=== PATIENT | male | born 1955 | race Two or more races ===

== ENCOUNTER 2017-04-09 12:03 | Inpatient (IN) | payer BC, MEDICAID ==
[~2017-04-09] VITALS: Ht 170.2 cm; Wt 108.0 kg
[~2017-04-09 12:03] MED LIST: AMLO10TA4 PO; Acetaminophen PO; BENA40TA2 PO; CLON0.1T PO; FOSAMAX; LEVO500T2 PO; METF10002 PO; METO100T7 PO
--- NOTE | 2017-04-09 12:10 | NUR ---
DR CARVALHO AT THE BEDSIDE FOR EVAL AND EXAM.
[2017-04-09 12:48] LABS: BASOPHILS # (AUTO) 0.1 K/uL (0.0-8.0); BASOPHILS % (AUTO) 1.3 % (0.0-2.0); EOSINOPHILS # (AUTO) 0.1 K/uL (0.0-0.7); EOSINOPHILS % (AUTO) 1.6 % (0.0-7.0); HEMATOCRIT 44.1 % (40-50); HEMOGLOBIN 14.1 G/DL (14.0-18.0); LYMPHOCYTES % (AUTO) 12.9 % (20.5-51.5); MEAN CORPUSCULAR HEMOGLOBIN 24.8 UUG (27.0-31.0); MEAN CORPUSCULAR HGB CONC 32 g/dL (32.0-37.0); MEAN CORPUSCULAR VOLUME 77.7 FL (82.0-92.0); MONOCYTES # (AUTO) 0.3 K/UL (0.1-1.30); MONOCYTES % (AUTO) 4.1 % (0.0-11.0); NEUTROPHILS # (AUTO) 5.9 K/UL (1.8-8.9); NEUTROPHILS % (AUTO) 80.1 % (38.5-71.5); PLATELET COUNT (AUTO) 195 K/UL (150-450); RED BLOOD CELL COUNT(AUTO) 5.68 MIL/UL (4.7-6.1); WHITE BLOOD COUNT (AUTO) 7.4 K/UL (4.0-11.2)
[2017-04-09 12:52] LABS: CREATININE 1.6 mg/dL (0.6-1.3); POTASSIUM 4.2 mmol/L (3.5-5.1)
--- NOTE | 2017-04-09 12:52 | NUR ---
PT BP is 186/128, MD aware. Pt is asymptomatic.
[2017-04-09 13:04] LABS: BILIRUBIN,DIRECT 0.1 mg/dL (0.0-0.2); BILIRUBIN,TOTAL 0.3 mg/dL (0.2-1.0); TOTAL PROTEIN, SERUM 6.8 g/dL (6.4-8.2)
[2017-04-09] MEDS ORDERED: LORA10TA7 PO (13:06)
[2017-04-09] MEDS ORDERED: FINA5TAB3 PO (13:06)
[2017-04-09] MEDS ORDERED: CHOL500050 PO (13:06)
[2017-04-09] MEDS ORDERED: ALBU18HF2 IH (13:06)
[2017-04-09] MEDS ORDERED: SITA100T PO (13:06)
[2017-04-09] MEDS ORDERED: DOCU100C36 PO (13:06)
[2017-04-09] MEDS ORDERED: TAMS-3 PO (13:06)
[2017-04-09] MEDS ORDERED: NEXIUM PO (13:06)
[2017-04-09] MEDS ORDERED: ASPI81TA31 PO (13:06)
[2017-04-09] MEDS ORDERED: GLIM2TAB2 PO (13:06)
[2017-04-09] MEDS ORDERED: HYDR-4077 PO (13:06)
[2017-04-09] MEDS ORDERED: FENO145T20 PO (13:06)
[2017-04-09] MEDS ORDERED: LABE100T PO (13:06)
--- NOTE | 2017-04-09 14:33 | NUR ---
Patient is resting comfortably in bed with eyes closed.
--- NOTE | 2017-04-09 15:44 | NUR ---
PT BP REMAINES ELEVATED, DR CARVALHO AWARE, NO ORDERS GIVEN. PT IS ASYMTOMATIC.
--- NOTE | 2017-04-09 16:00 | NUR ---
RECEIVED PATIENT FROM ED 61 YEARS OLD MALE WITH DX OF CHF/ELEVATED TROPONIN.ASSISTED INTO BED FIXED AND MADE COMFORTABLE PATIENT IS ALERT AND ORIENTED BUT UNDERSTANDS [place] BUT WITH SOME DIFFICULTY.ON O2 AT 2L/M BY NASAL CANULA WITH NO SOB AT THIS TIME.HEPLOCK RIGHT AC IS PATENT WITH NO S/S OF INFILTERATION AT THIS TIME.ORIENTED TO THE FACILITY ANS MED/SURG PROTOCOL.WILL OBSERVE.
--- NOTE | 2017-04-09 17:14 | NUR ---
PATIENT SEEN BY DR LOZADA HE IS AWARE OF HIS ELEVATED BLOOD PRESSURE WITH NEW ORDERS AND NOTED.
[2017-04-09] MEDS ORDERED: FUROSEMIDE 40 MG/4 ML VIAL IV SCH (17:15)
[2017-04-09] MEDS ORDERED: hydrALAZINE HCL 20 MG/1 ML VIAL IV PRN (17:15)
[2017-04-09 17:18] VITALS: BP 104/131
[2017-04-09] MEDS: ASPIRIN 81 MG TAB.CHEW PO SCH (17:20)
[2017-04-09] MEDS: hydrALAZINE HCL 50 MG TABLET PO SCH ×2 (17:21→22:14)
[2017-04-09] MEDS: LABETALOL HCL 100 MG TABLET PO SCH (17:22)
[2017-04-09] MEDS: AMLODIPINE 10 MG TABLET PO SCH (17:22)
--- NOTE | 2017-04-09 18:21 | NUR ---
SPOKE WITH DR VIVAS RE DIET AND HE IS AWARE OF PATIENTS ELEVATED BLOOD PRESSURE AND ORDERS FROM THE AQUARIUM SPECIALIST DR PERLA STATED OKAY WILL SEE PATIENT.
[2017-04-09] MEDS ORDERED: ACETAMINOPHEN 325 MG TABLET PO PRN (18:45)
[2017-04-09] MEDS ORDERED: ALBUTEROL SULFATE 1.25 MG/3 ML NEBU NEB PRN (18:45)
[2017-04-09] MEDS ORDERED: INSULIN REGULAR, HUMAN 300 UNIT/3 ML VIAL SQ PRN (18:45)
[2017-04-09] MEDS ORDERED: HYDROCODONE/APAP 5-325MG TABLET PO PRN (18:45)
[2017-04-09] MEDS ORDERED: DEXTROSE 50% 50 ML DISP.SYRIN IV PRN (18:45)
[2017-04-09] MEDS ORDERED: TEMAZEPAM 15 MG CAPSULE PO PRN (18:45)
[2017-04-09] MEDS ORDERED: TEMAZEPAM 7.5 MG CAPSULE PO PRN (19:00)
[2017-04-09 20:43] VITALS: BP 165/116
[2017-04-09] MEDS: DOCUSATE SODIUM 100 MG CAPSULE PO SCH (20:52)
[2017-04-09] MEDS: IBUPROFEN 400 MG TABLET PO PRN (20:52)
[2017-04-09] MEDS: ATORVASTATIN 40 MG TABLET PO SCH (20:52)
[2017-04-09] MEDS: TAMSULOSIN HCL 0.4 MG CAP.SR.24H PO SCH (20:52)
[2017-04-09] MEDS: BLOOD SUGAR DIAGNOSTIC 1 EACH STRIP VI SCH (20:53)
[2017-04-09] MEDS ORDERED: IBUPROFEN 400 MG TABLET ONE (20:59)
--- NOTE | 2017-04-09 21:00 | NUR ---
PT WITH C/O PAIN OF LEFT LEG 07/11. OFFERED PT PAIN MEDICATION NORCO PER ORDER, PT REFUSED STATING "I DONT WANT THAT". ALSO OFFERED TYLENOL AND PT REFUSED IT WELL. PER PT "I WANT MOTRIN". CALLED AND INFORMED DR VIVAS AND RECEIVED NEW ORDER FOR MOTRIN PRN. ADMINISTERED MOTRIN PER ORDER AND TOLERATED WELL. CALL LIGHT WITH IN REACH, WILL CONT TO MONITOR.
[2017-04-10 00:13] VITALS: BP 179/130
[2017-04-10 00:20] VITALS: BP 150/114
--- NOTE | 2017-04-10 00:20 | NUR ---
STILL NOTED PT WITH ELEVATED BP OF 179/130 AND PULSE OF 109. GIVEN HYDRALAZINE PRESCRIBED. RECHECKED B/P 150/114 AND PULSE 98.
[2017-04-10] MEDS ORDERED: NIFEdipine XL 60 MG TABSR PO ONE ×2 (01:30→01:44)
[2017-04-10 04:17] VITALS: BP 169/117
[2017-04-10] MEDS: hydrALAZINE HCL 50 MG TABLET PO SCH ×3 (05:29→20:54)
--- NOTE | 2017-04-10 05:58 | NUR ---
RES IN BED, RESTING. RESP IS EVEN AND UNLABORED. NO SOB. NO ACUTE DISTRESS. B/P WAS ELEVATED THROUGHOUT THE SHIFT. TRINH WELLS MADE AWARE. WITH NEW ORDERS NOTED AND CARRIED OUT. PT ON TELE SR 98 AT THIS TIME.
[2017-04-10] MEDS: PANTOPRAZOLE SODIUM 40 MG TABLET.DR PO SCH (06:05)
[2017-04-10] MEDS: IBUPROFEN 400 MG TABLET PO PRN ×2 (06:30→14:05)
[2017-04-10] MEDS: BLOOD SUGAR DIAGNOSTIC 1 EACH STRIP VI SCH ×4 (06:30→20:54)
[2017-04-10] MEDS ORDERED: IBUPROFEN 400 MG TABLET ONE (06:40)
[2017-04-10 06:54] LABS: BASOPHILS % (AUTO) 0.4 % (0.0-2.0); EOSINOPHILS # (AUTO) 0.1 K/uL (0.0-0.7); EOSINOPHILS % (AUTO) 1.1 % (0.0-7.0); HEMATOCRIT 46.3 % (40-50); HEMOGLOBIN 14.8 G/DL (14.0-18.0); LYMPHOCYTES # (AUTO) 1.2 K/UL (0.8-4.8); MEAN CORPUSCULAR HGB CONC 32 g/dL (32.0-37.0); MEAN CORPUSCULAR VOLUME 78.2 FL (82.0-92.0); MONOCYTES # (AUTO) 0.4 K/UL (0.1-1.30); MONOCYTES % (AUTO) 4.2 % (0.0-11.0); NEUTROPHILS # (AUTO) 7.8 K/UL (1.8-8.9); NEUTROPHILS % (AUTO) 81.3 % (38.5-71.5); PLATELET COUNT (AUTO) 187 K/UL (150-450); RED BLOOD CELL COUNT(AUTO) 5.92 MIL/UL (4.7-6.1); WHITE BLOOD COUNT (AUTO) 9.5 K/UL (4.0-11.2)
[2017-04-10 07:16] LABS: BILIRUBIN,TOTAL 0.4 mg/dL (0.2-1.0); CREATININE 1.6 mg/dL (0.6-1.3); MAGNESIUM 2.1 mg/dL (1.8-2.4); PHOSPHOROUS 3.1 mg/dL (2.5-4.9); POTASSIUM 3.6 mmol/L (3.5-5.1); TOTAL PROTEIN, SERUM 7.2 g/dL (6.4-8.2)
[2017-04-10 07:40] LABS: THYROID STIMULATING HORMONE 0.303 mIU/mL (0.358-3.740)
--- NOTE | 2017-04-10 08:15 | NUR ---
RECEIVED IN BED IN DEEP SLEEP AWAKENED HIM UP FOR BREAKFAST DRANK HIS JUICE ONLY STATED NOT HUNGRY DUE MEDICATIONS GIVEN NO S/S OF HYPO/HYPERGLYCEMIC REACTIONS AT THIS TIME.NO SHORTNESS OF BREATH WITH O2 ORDERED NOT IN DISTRESS AT THIS TIME AND WILL CONTINUE TO OBSERVE.
[2017-04-10] MEDS: FINASTERIDE 5 MG TABLET PO SCH (08:46)
[2017-04-10] MEDS: GLIMEPIRIDE 2 MG TABLET PO SCH ×2 (08:46→17:03)
[2017-04-10] MEDS: ASPIRIN 81 MG TAB.CHEW PO SCH (08:46)
[2017-04-10] MEDS: LINAGLIPTIN 5 MG TABLET PO SCH (08:46)
[2017-04-10] MEDS: FENOFIBRATE NANOCRYSTALLIZED 145 MG TABLET PO SCH (08:46)
[2017-04-10] MEDS: LABETALOL HCL 100 MG TABLET PO SCH ×2 (08:47→16:18)
[2017-04-10] MEDS: AMLODIPINE 10 MG TABLET PO SCH (08:48)
[2017-04-10] MEDS ORDERED: Medication Not On Formulary EA (Sitagliptin Phosphate (Januvia) 100 MG) PO SCH (09:00)
[2017-04-10] MEDS ORDERED: FUROSEMIDE 40 MG/4 ML VIAL IV SCH (09:00)
[2017-04-10 11:12] VITALS: BP 124/88
--- NOTE | 2017-04-10 13:43 | NUR ---
2 D ECHO COMPLETED ORDERED AND EF IS 60-65% AT THIS TIME.
--- NOTE | 2017-04-10 14:55 | NUR ---
PATIENT SEEN AND EXAMINED BY DR LOZADA LEAF TIER WITH NEW ORDER TO TAPER LASIX EFFECTIVE TOMORROW AND NOTED.
[2017-04-10 16:34] VITALS: BP 150/101
--- NOTE | 2017-04-10 18:00 | NUR ---
SLEEPING AT LONG INTERVALS BUT AROUSES EASILY ENCOURAGED TO ELEVATE HIS LEFT LEG MUCH ABLE AND HE EXPRESSED UNDERSTANDING.
--- NOTE | 2017-04-10 19:20 | NUR ---
PATIENT AWAKE VERBALLY RESPONSIVE, NO SOB NO CHEST PAIN, CONT ON OXYGEN 2L NC, ON PAIN MANAGEMENT, NO DISTRESS.
[2017-04-10 20:00] VITALS: BP 142/91
[2017-04-10] MEDS: DOCUSATE SODIUM 100 MG CAPSULE PO SCH (20:52)
[2017-04-10] MEDS: ATORVASTATIN 40 MG TABLET PO SCH (20:53)
[2017-04-10] MEDS: TAMSULOSIN HCL 0.4 MG CAP.SR.24H PO SCH (20:53)
[2017-04-10] MEDS ORDERED: CARISOPRODOL 350 MG TABLET PO ONE (23:18)
[2017-04-11] VITALS: BP 137/89
[2017-04-11] MEDS ORDERED: CARISOPRODOL 350 MG TABLET ONE (01:01)
[2017-04-11 04:00] VITALS: BP 157/108
[2017-04-11] MEDS: BLOOD SUGAR DIAGNOSTIC 1 EACH STRIP VI SCH ×3 (05:53→16:15)
[2017-04-11] MEDS: PANTOPRAZOLE SODIUM 40 MG TABLET.DR PO SCH (06:14)
[2017-04-11] MEDS: hydrALAZINE HCL 50 MG TABLET PO SCH ×2 (06:14→13:28)
--- NOTE | 2017-04-11 07:31 | NUR ---
PATIENT SLEPT MOST OF THE NIGHT, NO SOB NO CHEST PAIN,OXYGEN SAT WNL, BP SLIGHTLY ELEVATED, MEDICATED, ENDORSED TO NEXT SHIFT.
--- NOTE | 2017-04-11 08:30 | NUR ---
SLEEPING A LOT STATED THAT HE IS VERY TIRED AND NEEDED TO SLEEP.NO S/S OF HYPO/HYPERGLYCEMIC REACTIONS AT THIS TIME.REMAIN ON O2 WITH NO SHORTNESS OF BREATH TELE MONITORING REMAINS IN PROGRESS ORDERED MADE COMFORTABLE.
[2017-04-11] MEDS ORDERED: FUROSEMIDE 20 MG TABLET PO SCH (09:00)
[2017-04-11] MEDS ORDERED: NIFEdipine XL 60 MG TABSR PO SCH (09:00)
[2017-04-11] MEDS: FENOFIBRATE NANOCRYSTALLIZED 145 MG TABLET PO SCH (09:30)
[2017-04-11] MEDS: ASPIRIN 81 MG TAB.CHEW PO SCH (09:30)
[2017-04-11] MEDS: GLIMEPIRIDE 2 MG TABLET PO SCH ×2 (09:30→17:18)
[2017-04-11] MEDS: LABETALOL HCL 100 MG TABLET PO SCH ×2 (09:31→16:16)
[2017-04-11] MEDS: LINAGLIPTIN 5 MG TABLET PO SCH (09:31)
[2017-04-11] MEDS: FINASTERIDE 5 MG TABLET PO SCH (10:35)
[2017-04-11] MEDS: IBUPROFEN 400 MG TABLET PO PRN (10:44)
[2017-04-11] MEDS ORDERED: VANCOMYCIN IV 1,500 MG in IV DEXTROSE 5% 500 ML IV SCH (11:00)
[2017-04-11] MEDS ORDERED: CARISOPRODOL 350 MG TABLET PO PRN (11:00)
[2017-04-11 11:25] VITALS: BP 129/90
--- NOTE | 2017-04-11 11:45 | NUR ---
REMAIN ON IV ANTIBIOTICS ORDERED WITH NO ADVERSE OR ALLERGIC REACTIONS AT THIS TIME.LEFT LEG IS STILL AND SOMEWHAT REDENED ELEVATED ON THE PILLOW AND ENCOURAGED TO KEEP ELEVATED AND HE EXPRESSED UNDERSTANDING
[2017-04-11 15:11] VITALS: BP 123/92
--- NOTE | 2017-04-11 15:48 | NUR ---
Clinical pharmacy note-Vancomycin per pharmacy Subjective: To start Vancomycin dosing on this 61 year old patient for cellulitis Objective: BUN 19(04/10) Scr 1.6(7 WBC 9.5(04/10) Temp 98.6 Ht 5'7" Wt 238 lbs Assessment/Plan: Will start with Vancomycin 1500mg IV every 20 hrs(first dose given today at 1100) and draw trough by 4th dose(not ordered yet) for expected trough around 15.68. Since renal function is not stable, will check and adjust the dose if needed in am. Will follow daily.
[2017-04-11 16:16] VITALS: BP 131/90
--- NOTE | 2017-04-11 16:28 | NUR ---
BLOOD SUGAR IS 79 WITHIN NORMAL RANGE AND PATIENT IS ALERT AND ORIENTED AND NO S/S OF HYPOGLYCEMIC REACTIONS AT THIS TIME.ORANGE JUICE OFFERED AND HE DRANK AND TOLERATED IT WELL.WILL CONTINUE TO OBSERVE.
--- NOTE | 2017-04-11 18:15 | NUR ---
PATIENT SEEN BY DR VIVAS WITH ORDER TO DISCHARGE PATIENT HOME TODAY.PATIENT IS AWARE AWAITING FOR DR VIVAS TO FINALISE HIS PAPAER WORK.
[2017-04-11] MEDS ORDERED: TAMS-3 PO (18:26)
[2017-04-11] MEDS ORDERED: BENA20TA2 PO (18:26)
[2017-04-11] MEDS ORDERED: GLIM2TAB PO (18:26)
[2017-04-11] MEDS ORDERED: FURO20TA4 PO (18:26)
[2017-04-11] MEDS ORDERED: SULF1TAB48 PO (18:26)
[2017-04-11] MEDS ORDERED: CARI350T27 PO (18:26)
--- NOTE | 2017-04-11 18:42 | NUR ---
DISCHARGE INSTRUCTIONS AND PRESCRIPTIONS GIVEN TO THE PATIENT HEPLOCK REMOVED PATIENT INSTRUCTED TO CALL HIS MEDIA SUPERVISOR DR CUTLER FOR A FOLLOW UP APPOINTMENT WITH HIS CHF DIAGNOSIS AND HE EXPRESSED UNDERSTANDING.AWAITING FOR HIS SPOUSE TO PICK HIM UP.
--- NOTE | 2017-04-11 18:57 | NUR ---
PATIENTS HERE AND PATIENT DISCHARGED WITH ALL HIS PERSONAL BELONGINGS AND HE IS INSTRUCTED TO CALL HIS PITCH FILLER DR CUTLER FOR A FOLLOW UP APPOINTMENT ON HIS CHF AND HE EXPRESSED UNDERSTANDING.
== END 2017-04-11 19:00 | disposition home or self-care (01) | DRG 194 ==
LOC: ER 12:03 → TELE 15:47 → MED 04-11 12:09
PROVIDERS: ADMIT Internal Medicine; ATTEND Internal Medicine
DX: I13.0 Hypertensive heart and chronic kidney disease with heart failure and stage 1 through stage 4 chronic kidney disease, or unspecified chronic kidney disease (principal); I21.4 Non-ST elevation (NSTEMI) myocardial infarction; N17.0 Acute kidney failure with tubular necrosis; E43 Unspecified severe protein-calorie malnutrition; E83.52 Hypercalcemia; L03.116 Cellulitis of left lower limb; E11.22 Type 2 diabetes mellitus with diabetic chronic kidney disease; I50.33 Acute on chronic diastolic (congestive) heart failure; E11.65 Type 2 diabetes mellitus with hyperglycemia; Z68.37 Body mass index [BMI] 37.0-37.9, adult; E66.01 Morbid (severe) obesity due to excess calories; E78.5 Hyperlipidemia, unspecified; G89.29 Other chronic pain; Z91.14 Patient's other noncompliance with medication regimen; Z87.442 Personal history of urinary calculi; Z79.899 Other long term (current) drug therapy; Z98.890 Other specified postprocedural states; M54.30 Sciatica, unspecified side; F17.210 Nicotine dependence, cigarettes, uncomplicated; I16.0 Hypertensive urgency; N18.9 Chronic kidney disease, unspecified
CPT/HCPCS: 36415; 70030-TC; 71010; 83735; 84100; 84443; 85025; 85730; 93005; 93307; A4663; J0360; J1815; J1940; J3370; J7050; J7060

== ENCOUNTER 2017-05-22 09:50 | Inpatient (IN) | payer BC ==
[2017-05-22] VITALS (31 sets, daily range): BP systolic 118–186; BP diastolic 67–134
[~2017-05-22] VITALS: Ht 162.6 cm; Wt 110.7 kg
[~2017-05-22 09:50] MED LIST changes: +ALBU18HF2 IH; +ASPI81TA31 PO; -Acetaminophen PO; +BENA20TA2 PO; -BENA40TA2 PO; +CARI350T27 PO; +CHOL500050 PO; -CLON0.1T PO; +DOCU100C36 PO; +FINA5TAB3 PO; -FOSAMAX; +FURO20TA4 PO; +GLIM2TAB PO; +HYDR-4077 PO; +LABE100T PO; -LEVO500T2 PO; +LORA10TA7 PO; -METF10002 PO; -METO100T7 PO; +NEXIUM PO; +SITA100T PO; +SULF1TAB48 PO; +TAMS-3 PO
[2017-05-22] MEDS ORDERED: ALBUTEROL SULFATE 2.5 MG/3 ML NEBU NEB ONE ×3 (10:00→13:00)
[2017-05-22] MEDS ORDERED: IPRATROPIUM BROMIDE 0.5 MG/2.5 ML NEBU NEB ONE ×2 (10:00→13:30)
--- NOTE | 2017-05-22 10:00 | NUR ---
Dr Hendricks at the bedside for eval and exam.
[2017-05-22] MEDS ORDERED: IPRATROPIUM BROMIDE 0.5 MG/2.5 ML NEBU ONE ×2 (10:14→13:25)
[2017-05-22] MEDS ORDERED: ALBUTEROL SULFATE 2.5 MG/3 ML NEBU ONE ×3 (10:14→13:07)
--- NOTE | 2017-05-22 10:29 | NUR ---
Pt states feeling better, RR and 02 sat improved.
[2017-05-22 10:37] LABS: CREATININE 1.7 mg/dL (0.6-1.3); POTASSIUM 4.4 mmol/L (3.5-5.1)
[2017-05-22 10:40] LABS: BASOPHILS % (AUTO) 0.4 % (0.0-2.0); EOSINOPHILS # (AUTO) 0.2 K/uL (0.0-0.7); EOSINOPHILS % (AUTO) 1.8 % (0.0-7.0); HEMOGLOBIN 14.1 G/DL (14.0-18.0); LYMPHOCYTES # (AUTO) 1.3 K/UL (0.8-4.8); LYMPHOCYTES % (AUTO) 13.9 % (20.5-51.5); MEAN CORPUSCULAR HEMOGLOBIN 24.8 UUG (27.0-31.0); MEAN CORPUSCULAR HGB CONC 31 g/dL (32.0-37.0); MEAN CORPUSCULAR VOLUME 79.1 FL (82.0-92.0); MONOCYTES # (AUTO) 0.4 K/UL (0.1-1.30); MONOCYTES % (AUTO) 4.3 % (0.0-11.0); NEUTROPHILS # (AUTO) 7.4 K/UL (1.8-8.9); NEUTROPHILS % (AUTO) 79.6 % (38.5-71.5); PLATELET COUNT (AUTO) 199 K/UL (150-450); RED BLOOD CELL COUNT(AUTO) 5.69 MIL/UL (4.7-6.1); WHITE BLOOD COUNT (AUTO) 9.3 K/UL (4.0-11.2)
[2017-05-22] MEDS ORDERED: PANTOPRAZOLE SODIUM 40 MG VIAL IV ONE (10:45)
[2017-05-22] MEDS ORDERED: methylPREDNISolone SOD SUCC 125 MG/2 ML VIAL IV ONE (10:45)
[2017-05-22 10:49] LABS: BILIRUBIN,DIRECT 0.1 mg/dL (0.0-0.2); BILIRUBIN,TOTAL 0.4 mg/dL (0.2-1.0); TOTAL PROTEIN, SERUM 6.6 g/dL (6.4-8.2)
[2017-05-22] MEDS ORDERED: GABA-532 PO (10:52)
[2017-05-22] MEDS ORDERED: MELO-107 PO (10:52)
[2017-05-22] MEDS ORDERED: HYDR-4077 PO (10:52)
[2017-05-22] MEDS ORDERED: FURO-151 PO (10:52)
[2017-05-22] MEDS ORDERED: BENA20TA2 PO (10:52)
[2017-05-22] MEDS ORDERED: methylPREDNISolone SOD SUCC 125 MG/2 ML VIAL ONE (10:56)
[2017-05-22] MEDS ORDERED: PANTOPRAZOLE SODIUM 40 MG VIAL ONE (10:56)
[2017-05-22] MEDS ORDERED: CHOL10002 PO (11:05)
--- NOTE | 2017-05-22 11:05 | NUR ---
EDICATIONS REVIEWED WITH PATIENT'S DAUGHTER.
[2017-05-22] MEDS ORDERED: AZITHROMYCIN IV 500 MG in IV DEXTROSE 5% 250 ML IV ONE (11:30)
[2017-05-22] MEDS ORDERED: CEFTRIAXONE 1 G in IV DEXTROSE 5% 50 ML IV ONE (11:30)
[2017-05-22] MEDS ORDERED: ASPIRIN 325 MG TABLET PO ONE (11:30)
[2017-05-22] MEDS ORDERED: ASPIRIN 325 MG TABLET ONE (11:58)
[2017-05-22] MEDS ORDERED: AZITHROMYCIN 500 MG VIAL IV ONE (11:58)
[2017-05-22] MEDS ORDERED: CEFTRIAXONE 1 G VIAL ONE (11:58)
--- NOTE | 2017-05-22 12:40 | NUR ---
PT BECAME RESTLESS AND DIAPHARATIC, 02 SAT DROPS TO 92%. NOTIFIED MD, AND CHANGED PT TO MASK AT 10L/MIN. PT REMAINES TO BE HAVING RR35 AND T[place]IA.
[2017-05-22] MEDS ORDERED: ACETAMINOPHEN ES 500 MG TABLET ONE (12:48)
[2017-05-22] MEDS ORDERED: ACETAMINOPHEN ES 500 MG TABLET PO ONE (13:00)
[2017-05-22] MEDS ORDERED: FUROSEMIDE 40 MG/4 ML VIAL ONE (13:12)
[2017-05-22] MEDS ORDERED: NITROGLYCERIN 0.4 MG/TAB BOTTLE SL ONE ×2 (13:14→13:45)
[2017-05-22] MEDS ORDERED: NITROGLYCERIN IV 250 ML ONE (13:18)
--- NOTE | 2017-05-22 13:20 | NUR ---
RT started pt on bipap per md order, 09/05, rr 16, FIO2 40%.
[2017-05-22] MEDS ORDERED: MAGNESIUM SULFATE/D5W 100 ML IV SCH (13:30)
[2017-05-22] MEDS ORDERED: MAGNESIUM SULFATE/D5W 100 ML ONE (13:35)
[2017-05-22] MEDS ORDERED: NITROGLYCERIN/D5W 50 MG/250 ML BOTTLE IV ONE (13:45)
[2017-05-22] MEDS ORDERED: FUROSEMIDE 20 MG/2 ML VIAL IV ONE (13:45)
--- NOTE | 2017-05-22 13:55 | NUR ---
sbar report received from Lucie HOWE
[2017-05-22 14:02] LABS: ABG BASE EXCESS -3.8 mmol/L; ABG PCO2 48.5 mmHg (35.0-45.0); ABG PH 7.294 (7.350-7.450); ABG PO2 73.9 mmHg (75.0-100.0); ABG SITE RIGHT RADIAL; ABG TOTAL HEMOGLOBIN 14.4 G/dL (13.5-18.0); COHb 2.1 % (0.5-1.5); MetHb 0.3 % (0.0-1.5); O2Hb 91.9 % (94.0-97.0)
--- NOTE | 2017-05-22 14:15 | NUR ---
DECREASE NITRO DRIP TO 5 MCG/MIN PER MD ORDER.
--- NOTE | 2017-05-22 15:00 | NUR ---
admitted 61 yr old male to ccu3, awake alert and on BIPAP 12/5 rate 16 Fio2 40%. lungs rhonci bilaterally. ekg sinus tachycardia 110/min. on ntg drip @ 5mcg/min. IV sites times 2 Right wrist #20 and left AC #20. Addendum: 05/22/17 at 1934 by ANNA ROA RN Amended: Links added.
[2017-05-22] MEDS ORDERED: NITROGLYCERIN IV 250 ML IV SCH (15:30)
--- NOTE | 2017-05-22 15:30 | NUR ---
voiding with no problem Addendum: 05/22/17 at 1939 by ANNA ROA RN Amended: Links added.
--- NOTE | 2017-05-22 16:00 | NUR ---
temp better. warmed up with blankets Addendum: 05/22/17 at 1938 by ANNA ROA RN Amended: Mary added. Addendum: 05/22/17 at 1939 by ANNA ROA RN Amended: Mary added.
[2017-05-22 16:13] LABS: *BILIRUBIN,URIN NEGATIVE (NEGATIVE); *BLOOD, URINE NEGATIVE (NEGATIVE); *CLARITY,URINE CLEAR (CLEAR); *COLOR,URINE YELLOW (YELLOW); *KETONES,URINE NEGATIVE (NEGATIVE); *UROBILINOGEN,URINE 0.2 E.U./dl (NORMAL); LEUKOCYTE ESTERASE ,URINE 1+ (NEGATIVE); NITRITE, URINE NEGATIVE (NEGATIVE); PH,URINE 5.5 (5.0-8.0); UGLUCOSE NEGATIVE (NEGATIVE)
[2017-05-22 16:14] LABS: *PROTEIN,URINE 3+ (NEGATIVE)
[2017-05-22 16:29] LABS: BACTERIA,URINE MA /HPF (NONE SEEN); RBC,URINE 0-3 /HPF (0-3); SQUAMOUS EPITHELIAL CELL,UR FEW /HPF (NONE SEEN)
[2017-05-22] MEDS ORDERED: NITROGLYCERIN IV 250 ML IV PRN (16:30)
[2017-05-22] MEDS ORDERED: Z GUARD REMEDY PASTE 57 GM TUBE TOP PRN (18:00)
[2017-05-22] MEDS ORDERED: ONDANSETRON 4 MG/2 ML VIAL IV PRN (18:00)
[2017-05-22] MEDS ORDERED: ACETAMINOPHEN 325 MG TABLET PO PRN (18:00)
[2017-05-22] MEDS ORDERED: BUMETANIDE INJ 4 MG in IV DEXTROSE 5% 24 ML IV ONE (18:00)
[2017-05-22] MEDS ORDERED: IV NORMAL SALINE 250 ML IV PRN (18:30)
--- NOTE | 2017-05-22 18:35 | NUR ---
anetax drip started at 1mg/hr times 4 hrs via right wrist Addendum: 05/22/17 at 1935 by ANNA ROA RN Amended: Links added. Addendum: 05/22/17 at 1936 by ANNA ROA RN Amended: Links added. Addendum: 05/22/17 at 1937 by ANNA ROA RN Amended: Links added. Addendum: 05/22/17 at 1939 by ANNA ROA RN Amended: Links added.
[2017-05-22] MEDS: GLIMEPIRIDE 2 MG TABLET PO SCH (18:37)
--- NOTE | 2017-05-22 19:00 | NUR ---
ntg drip increased to 20mcg/min for persistent hypertension Addendum: 05/22/17 at 1936 by ANNA ROA RN Amended: Links added. Addendum: 05/22/17 at 1937 by ANNA ROA RN Amended: Links added. Addendum: 05/22/17 at 1938 by ANNA ROA RN Amended: Links added.
--- NOTE | 2017-05-22 19:30 | NUR ---
Resting in bed, sleeping intermittently but easily awakens. Resp easy and regular on NC 4L/min. States has Hx sleep apnea and wears CPAP PRN at home. Remains hypertensive; Nitroglycerin drip titrating as per parameter. Bumex drip also infusing at 1mg/hr until completed. Plans of care explained and noted pt to have poor concentration. Nursing comfort measures observed.
[2017-05-22] MEDS: MORPHINE SULFATE 2 MG/1 ML DISP.SYRIN IV PRN (19:55)
[2017-05-22] MEDS ORDERED: hydrALAZINE HCL 20 MG/1 ML VIAL IV PRN (20:15)
--- NOTE | 2017-05-22 20:15 | NUR ---
Dr. Frank called in, made aware of persistent HTN. Received order for PRN IV Hydralazine, carried out.
[2017-05-22] MEDS: TAMSULOSIN HCL 0.4 MG CAP.SR.24H PO SCH (20:40)
[2017-05-22] MEDS: GABAPENTIN 100 MG CAPSULE PO SCH (20:41)
--- NOTE | 2017-05-22 22:00 | NUR ---
Bumex infusion completed. Pt continues to diurese large amounts of urine. O2 sats continue to improve and thus O2 titrated down to 2L/min. Will continue to monitor.
[2017-05-23] VITALS (64 sets, daily range): BP systolic 100–182; BP diastolic 40–130
--- NOTE | 2017-05-23 00:01 | NUR ---
Ambien for sleep given per request. Also attempted to put on BiPap for the night however pt expressed discomfort from BiPap mask. Nasal cannula 2L/min resumed.
[2017-05-23] MEDS: ZOLPIDEM 5 MG TABLET PO PRN (00:09)
--- NOTE | 2017-05-23 04:00 | NUR ---
Noted O2 sats range from 84-97% on O2 3L/min. Has been sleeping soundly. In no apparent acute distress.
[2017-05-23] MEDS ORDERED: ENOXAPARIN SODIUM 30 MG/0.3 ML DISP.SYRIN SUBCUT SCH (04:45)
[2017-05-23] MEDS ORDERED: ENOXAPARIN SODIUM 30 MG/0.3 ML DISP.SYRIN ONE (05:06)
[2017-05-23 05:11] LABS: BASOPHILS % (AUTO) 0.1 % (0.0-2.0); EOSINOPHILS % (AUTO) 0.2 % (0.0-7.0); HEMATOCRIT 41.2 % (40-50); HEMOGLOBIN 13.3 G/DL (14.0-18.0); LYMPHOCYTES # (AUTO) 0.9 K/UL (0.8-4.8); LYMPHOCYTES % (AUTO) 9.2 % (20.5-51.5); MEAN CORPUSCULAR HEMOGLOBIN 25.4 UUG (27.0-31.0); MEAN CORPUSCULAR HGB CONC 32 g/dL (32.0-37.0); MONOCYTES # (AUTO) 0.4 K/UL (0.1-1.30); MONOCYTES % (AUTO) 3.6 % (0.0-11.0); NEUTROPHILS # (AUTO) 8.5 K/UL (1.8-8.9); NEUTROPHILS % (AUTO) 86.9 % (38.5-71.5); PLATELET COUNT (AUTO) 215 K/UL (150-450); RED BLOOD CELL COUNT(AUTO) 5.22 MIL/UL (4.7-6.1); WHITE BLOOD COUNT (AUTO) 9.8 K/UL (4.0-11.2)
[2017-05-23 05:20] LABS: BILIRUBIN,TOTAL 0.3 mg/dL (0.2-1.0); CREATININE 1.7 mg/dL (0.6-1.3); MAGNESIUM 1.8 mg/dL (1.8-2.4); PHOSPHOROUS 3.7 mg/dL (2.5-4.9); TOTAL PROTEIN, SERUM 6.4 g/dL (6.4-8.2)
[2017-05-23 05:26] LABS: THYROID STIMULATING HORMONE 0.227 mIU/mL (0.358-3.740)
--- NOTE | 2017-05-23 06:30 | NUR ---
Refusing AM care at this time; prefers to sleep. Nitroglycerin continues to infuse at 20 mcg/min to keep SBP below 150. No critical lab values this AM. Please see CCU flowsheet for trends and clinical data.
--- NOTE | 2017-05-23 07:15 | NUR ---
report received from Maggie HOWE. 6 yr old male admitted for chf/sob. now on 3 l nc. still on ntg drip to keep sbp<150 via left upper arm #22. ekg sinus tach hr 110/min bp160/120 Addendum: 05/23/17 at 1045 by ANNA ROA RN Amended: Links added.
--- NOTE | 2017-05-23 08:00 | NUR ---
ntg drip titrated up to 25mcg/min. for persistent hypertension Addendum: 05/23/17 at 1046 by ANNA ROA RN Amended: Links added.
[2017-05-23] MEDS: ASPIRIN 81 MG TAB.CHEW PO SCH (08:45)
[2017-05-23] MEDS: FINASTERIDE 5 MG TABLET PO SCH (08:45)
[2017-05-23] MEDS: AMLODIPINE 10 MG TABLET PO SCH (08:46)
[2017-05-23] MEDS: CHOLECALCIFEROL 1,000 UNIT TABLET PO SCH (08:47)
[2017-05-23] MEDS: LINAGLIPTIN 5 MG TABLET PO SCH (08:49)
[2017-05-23] MEDS: GLIMEPIRIDE 2 MG TABLET PO SCH ×2 (08:50→17:09)
[2017-05-23] MEDS: PANTOPRAZOLE SODIUM 40 MG TABLET.DR PO SCH (08:51)
[2017-05-23] MEDS ORDERED: LABETALOL HCL 100 MG TABLET PO SCH (09:00)
[2017-05-23] MEDS ORDERED: hydrALAZINE HCL 50 MG TABLET PO SCH (09:00)
[2017-05-23] MEDS ORDERED: SITAGLIPTIN PHOSPHATE 50 MG TABLET PO SCH (09:00)
[2017-05-23] MEDS ORDERED: BENAZEPRIL HCL 20 MG TABLET PO SCH (09:00)
[2017-05-23] MEDS: LEVALBUTEROL HCL NEB 0.63 MG/3 ML NEBU NEB PRN ×2 (10:24→21:25)
--- NOTE | 2017-05-23 10:39 | NUR ---
episodes of coughing spells, cough nonproductive. lungs tight wth some wheezes. talked to dr cline for breathing treatment. xopenex treatment given per Chester RT Addendum: 05/23/17 at 1039 by ANNA ROA RN Amended: Links added. Addendum: 05/23/17 at 1046 by ANNA ROA RN Amended: Links added.
[2017-05-23] MEDS ORDERED: NITROGLYCERIN OINT 1 GM PACKET TP PRN (11:00)
--- NOTE | 2017-05-23 11:31 | NUR ---
Report given to Jhonny HOWE Nursing Cable Reeler Addendum: 05/23/17 at 1258 by ANNA ROA RN Amended: Links added.
--- NOTE | 2017-05-23 12:03 | NUR ---
Report received from Jhonny HOWE Nursing Debridging Machine Operator Addendum: 05/23/17 at 1259 by ANNA ROA RN Amended: Links added.
[2017-05-23] MEDS ORDERED: NORMAL SALINE FLUSH 10 ML DISP.SYRIN IV PRN (12:45)
[2017-05-23] MEDS: hydrALAZINE HCL 50 MG TABLET PO SCH ×2 (14:38→22:04)
[2017-05-23] MEDS: NORMAL SALINE FLUSH 10 ML DISP.SYRIN IV SCH ×2 (14:38→22:03)
--- NOTE | 2017-05-23 14:45 | NUR ---
education materials re smoking cessation, ntg drip and heart failure given to patient Addendum: 05/23/17 at 1617 by ANNA ROA RN Amended: Links added. Addendum: 05/23/17 at 1619 by ANNA ROA RN Amended: Links added.
--- NOTE | 2017-05-23 16:15 | NUR ---
ntg drip off at 1600. bp stable. Addendum: 05/23/17 at 1615 by ANNA ROA RN Amended: Links added. Addendum: 05/23/17 at 1615 by ANNA ROA RN Amended: Links added. Addendum: 05/23/17 at 1617 by ANNA ROA RN Amended: Mary added. Addendum: 05/23/17 at 1619 by ANNA ROA RN Amended: Links added.
--- NOTE | 2017-05-23 16:19 | NUR ---
voiding less frequently today. Addendum: 05/23/17 at 1619 by ANNA ROA RN Amended: Links added.
--- NOTE | 2017-05-23 18:43 | NUR ---
seen by dr cline. talked to patient and family. orders received. will keep patient in ccu. Addendum: 05/23/17 at 1843 by ANNA ROA RN Amended: Links added.
--- NOTE | 2017-05-23 19:24 | NUR ---
Report given to David Addendum: 05/23/17 at 1924 by ANNA ROA RN Amended: Links added.
--- NOTE | 2017-05-23 20:00 | NUR ---
Awake, alert. Spirits good; states feeling better today. Off Nitroglycerin drip this pm and BP better controlled on PO meds. Stable rhythm and VS. Resp easy, regular; on O2 2L/min, adequate sats. Denies pain/discomfort. Nursing comfort measures observed at all times. Please see CCU flowsheet for full assessment and clinical data.
[2017-05-23] MEDS: EZETIMIBE 10 MG TABLET PO SCH (20:36)
[2017-05-23] MEDS: ATORVASTATIN 40 MG TABLET PO SCH (20:37)
[2017-05-23] MEDS: TAMSULOSIN HCL 0.4 MG CAP.SR.24H PO SCH (20:37)
[2017-05-23] MEDS: NICOTINE 21 MG/24HR PATCH TD SCH (20:37)
[2017-05-23] MEDS: GABAPENTIN 100 MG CAPSULE PO SCH (20:37)
[2017-05-23] MEDS: LABETALOL HCL 100 MG TABLET PO SCH (20:38)
[2017-05-24] VITALS (18 sets, daily range): BP systolic 110–160; BP diastolic 65–110
[2017-05-24] MEDS: ZOLPIDEM 5 MG TABLET PO PRN ×2 (00:05→21:51)
--- NOTE | 2017-05-24 02:00 | NUR ---
Has been sleeping; received Ambien at . Noted leg restlessness when asleep. Pt with Hx restless leg syndrome. Safety measures observed at all times.
[2017-05-24 05:21] LABS: BASOPHILS # (AUTO) 0.1 K/uL (0.0-8.0); BASOPHILS % (AUTO) 0.9 % (0.0-2.0); EOSINOPHILS # (AUTO) 0.1 K/uL (0.0-0.7); EOSINOPHILS % (AUTO) 0.6 % (0.0-7.0); HEMATOCRIT 42.8 % (40-50); HEMOGLOBIN 13.6 G/DL (14.0-18.0); LYMPHOCYTES # (AUTO) 1.4 K/UL (0.8-4.8); LYMPHOCYTES % (AUTO) 14.9 % (20.5-51.5); MEAN CORPUSCULAR HEMOGLOBIN 25.5 UUG (27.0-31.0); MEAN CORPUSCULAR HGB CONC 32 g/dL (32.0-37.0); MEAN CORPUSCULAR VOLUME 79.9 FL (82.0-92.0); MONOCYTES # (AUTO) 0.5 K/UL (0.1-1.30); MONOCYTES % (AUTO) 4.8 % (0.0-11.0); NEUTROPHILS # (AUTO) 7.6 K/UL (1.8-8.9); NEUTROPHILS % (AUTO) 78.8 % (38.5-71.5); PLATELET COUNT (AUTO) 210 K/UL (150-450); RED BLOOD CELL COUNT(AUTO) 5.35 MIL/UL (4.7-6.1); WHITE BLOOD COUNT (AUTO) 9.7 K/UL (4.0-11.2)
[2017-05-24 05:34] LABS: BILIRUBIN,TOTAL 0.3 mg/dL (0.2-1.0); CREATININE 1.5 mg/dL (0.6-1.3); PHOSPHOROUS 3.2 mg/dL (2.5-4.9); TOTAL PROTEIN, SERUM 6.1 g/dL (6.4-8.2)
[2017-05-24 05:45] LABS: THYROID STIMULATING HORMONE 0.374 mIU/mL (0.358-3.740)
--- NOTE | 2017-05-24 06:00 | NUR ---
Uneventful, restful night. Expressing desire to go home "so I can smoke." Smoking cessation education reviewed with pt; also started Nicotine patch at HS. Please see CCU flowsheet for trends and clinical data.
[2017-05-24] MEDS: NORMAL SALINE FLUSH 10 ML DISP.SYRIN IV SCH ×2 (06:05→14:21)
[2017-05-24] MEDS: hydrALAZINE HCL 50 MG TABLET PO SCH ×3 (06:06→21:35)
[2017-05-24] MEDS: PANTOPRAZOLE SODIUM 40 MG TABLET.DR PO SCH (06:06)
--- NOTE | 2017-05-24 07:00 | NUR ---
REC'D BEDSIDE SBAR REPORT FROM YANIQUE RN, PT RESTING EYES CLOSED,ON 3L O2 VIA N/C, DVT STOCKING IN USE, MONITOR SHOWS NSR, PO2=96%.
[2017-05-24 07:32] LABS: EOSINOPHILS % (MANUAL) 1 % (0-8); LYMPHOCYTES % (MANUAL) 15 % (20-40); MONOCYTES % (MANUAL) 4 % (2-10); NEUTROPHILS % (MANUAL) 80 % (42-75)
[2017-05-24] MEDS: LINAGLIPTIN 5 MG TABLET PO SCH (08:17)
[2017-05-24] MEDS: GLIMEPIRIDE 2 MG TABLET PO SCH ×2 (08:17→17:27)
--- NOTE | 2017-05-24 08:30 | NUR ---
PT EATING BREAKFAST
--- NOTE | 2017-05-24 08:34 | NUR ---
LAUREN HOWE, TEXED DR CORAZON JONES A MESSAGE REGARDING ABNORMAL RESULTS OF URINE.
--- NOTE | 2017-05-24 08:36 | NUR ---
SPOKE TO DR CHANDRA REGARDING ABNORMAL URINE RESULTS. PER DR CHANDRA ORDERS TO BE PLACED LATER.
[2017-05-24] MEDS ORDERED: ENOXAPARIN SODIUM 30 MG/0.3 ML DISP.SYRIN SUBCUT SCH (09:00)
--- NOTE | 2017-05-24 09:00 | NUR ---
DR OTTO AT THE BEDSIDE EVALUATING THE PT.
[2017-05-24] MEDS: ENOXAPARIN SODIUM 40 MG/0.4 ML DISP.SYRIN SQ SCH (09:14)
[2017-05-24] MEDS: ASPIRIN 81 MG TAB.CHEW PO SCH (09:17)
[2017-05-24] MEDS: FINASTERIDE 5 MG TABLET PO SCH (09:17)
[2017-05-24] MEDS: LABETALOL HCL 100 MG TABLET PO SCH ×2 (09:18→21:35)
[2017-05-24] MEDS: AMLODIPINE 10 MG TABLET PO SCH (09:18)
[2017-05-24] MEDS: CHOLECALCIFEROL 1,000 UNIT TABLET PO SCH (09:20)
[2017-05-24] MEDS: MORPHINE SULFATE 2 MG/1 ML DISP.SYRIN IV PRN (09:37)
[2017-05-24] MEDS: NICOTINE 21 MG/24HR PATCH TD SCH (09:42)
[2017-05-24] MEDS: CEFTRIAXONE 1 G in IV DEXTROSE 5% 50 ML IV SCH (09:42)
[2017-05-24] MEDS ORDERED: DEXTROSE 50% 50 ML DISP.SYRIN IV PRN (09:45)
[2017-05-24] MEDS: FUROSEMIDE 20 MG/2 ML VIAL IV SCH (09:56)
--- NOTE | 2017-05-24 11:00 | NUR ---
ivory tech at the bedside performing ivory.
[2017-05-24] MEDS: BLOOD SUGAR DIAGNOSTIC 1 EACH STRIP VI SCH ×3 (11:49→21:39)
[2017-05-24] MEDS: INSULIN REGULAR, HUMAN 300 UNIT/3 ML VIAL SQ PRN ×2 (11:52→17:26)
--- NOTE | 2017-05-24 15:11 | NUR ---
PT TO GO TO TELE BED RM 218 JESENIA RN TO RECEIVE REPORT. JESENIA AT THIS TIME AT BREAK.
--- NOTE | 2017-05-24 15:41 | NUR ---
SBAR REPORT TO JESENIA RN,FOOT ROENTGENOLOGIST, PT TRSANSFERED VIA GUERNEY/MONITOR/O2 TO RM 218, PT TOOK ALL BEL;ONGINGS,
--- NOTE | 2017-05-24 16:09 | NUR ---
PT BROUGHT OVER IN WHEELCHAIR, IN BED COMPLAINING OF DIZZINESS. DENIES SHORTNESS OF BREATH AT THIS TIME, PLACED ON 3 L NC. VS STABLE, ORIENTED TO ROOM, CALL LIGHT WITHIN REACH AND IV INTACT.
[2017-05-24 17:37] LABS: *BILIRUBIN,URIN NEGATIVE (NEGATIVE); *BLOOD, URINE NEGATIVE (NEGATIVE); *CLARITY,URINE CLOUDY (CLEAR); *COLOR,URINE YELLOW (YELLOW); *KETONES,URINE NEGATIVE (NEGATIVE); *PROTEIN,URINE 2+ (NEGATIVE); *UROBILINOGEN,URINE 0.2 E.U./dl (NORMAL); LEUKOCYTE ESTERASE ,URINE 1+ (NEGATIVE); NITRITE, URINE NEGATIVE (NEGATIVE); PH,URINE 5.5 (5.0-8.0); UGLUCOSE NEGATIVE (NEGATIVE)
[2017-05-24 17:52] LABS: *CREATININE,URINE 43.9 mg/dL (30-125); *URINE TOTAL PROTEIN RANDOM 130.7 mg/dL (<150/24HR)
[2017-05-24 18:13] LABS: BACTERIA,URINE MANY /HPF (NONE SEEN); WBC,URINE 50-80 /HPF (0-3)
--- NOTE | 2017-05-24 18:35 | NUR ---
PT DENIES DIZZINESS. NO CHANGES IN CONDITION. ALL SAFETY AND COMFORT MEASURES ATTENDED TO. WILL CONTINUE TO MONITOR.
[2017-05-24] MEDS: ATORVASTATIN 40 MG TABLET PO SCH (21:34)
[2017-05-24] MEDS: GABAPENTIN 100 MG CAPSULE PO SCH (21:34)
[2017-05-24] MEDS: EZETIMIBE 10 MG TABLET PO SCH (21:35)
[2017-05-24] MEDS: TAMSULOSIN HCL 0.4 MG CAP.SR.24H PO SCH (21:35)
--- NOTE | 2017-05-24 23:30 | NUR ---
RECEIVED PATIENT SLEEPING AND COMFORTABLE IN BED. NO OTHER COMPLAINT. ON NC 3l NO SIGNS OF RESPIRATORY DISTRESS. ALERT AND ORIENTED X4. VS STABLE. SR ON TELE. GIVEN DOSE OF SLEEPING PILLS, COMPLAINT OF NOT SLEEPING VERY WELL. WILL CONT TO MONITOR.
[2017-05-25 04:00] VITALS: BP 125/87
[2017-05-25] MEDS: hydrALAZINE HCL 50 MG TABLET PO SCH ×2 (06:19→14:39)
[2017-05-25] MEDS: PANTOPRAZOLE SODIUM 40 MG TABLET.DR PO SCH (06:19)
[2017-05-25] MEDS: BLOOD SUGAR DIAGNOSTIC 1 EACH STRIP VI SCH ×3 (06:30→16:49)
--- NOTE | 2017-05-25 06:44 | NUR ---
UNEVENTFUL NIGHT. BP THIS AM IS 141/96. OTHERWISE PATIENT HAS NO OTHER COMPLAINT.
[2017-05-25 08:10] LABS: BILIRUBIN,TOTAL 0.4 mg/dL (0.2-1.0); CREATININE 1.7 mg/dL (0.6-1.3); MAGNESIUM 2.1 mg/dL (1.8-2.4); PHOSPHOROUS 3.5 mg/dL (2.5-4.9); TOTAL PROTEIN, SERUM 6.1 g/dL (6.4-8.2)
[2017-05-25] MEDS: ASPIRIN 81 MG TAB.CHEW PO SCH (08:11)
[2017-05-25] MEDS: FINASTERIDE 5 MG TABLET PO SCH (08:11)
[2017-05-25] MEDS: CHOLECALCIFEROL 1,000 UNIT TABLET PO SCH (08:11)
[2017-05-25] MEDS: AMLODIPINE 10 MG TABLET PO SCH (08:12)
[2017-05-25] MEDS: LINAGLIPTIN 5 MG TABLET PO SCH (08:12)
[2017-05-25] MEDS: LABETALOL HCL 100 MG TABLET PO SCH (08:17)
[2017-05-25] MEDS: GLIMEPIRIDE 2 MG TABLET PO SCH ×2 (08:18→17:40)
[2017-05-25] MEDS: NICOTINE 21 MG/24HR PATCH TD SCH (08:22)
[2017-05-25] MEDS: ENOXAPARIN SODIUM 40 MG/0.4 ML DISP.SYRIN SQ SCH (08:24)
[2017-05-25] MEDS: FUROSEMIDE 20 MG/2 ML VIAL IV SCH (08:26)
[2017-05-25 08:54] LABS: BASOPHILS # (AUTO) 0.2 K/uL (0.0-8.0); BASOPHILS % (AUTO) 1.7 % (0.0-2.0); EOSINOPHILS # (AUTO) 0.1 K/uL (0.0-0.7); HEMATOCRIT 45.3 % (40-50); HEMOGLOBIN 14.9 G/DL (14.0-18.0); LYMPHOCYTES # (AUTO) 1.4 K/UL (0.8-4.8); LYMPHOCYTES % (AUTO) 15.9 % (20.5-51.5); MEAN CORPUSCULAR HGB CONC 33 g/dL (32.0-37.0); MEAN CORPUSCULAR VOLUME 79.3 FL (82.0-92.0); MONOCYTES # (AUTO) 0.5 K/UL (0.1-1.30); MONOCYTES % (AUTO) 6.1 % (0.0-11.0); NEUTROPHILS # (AUTO) 6.7 K/UL (1.8-8.9); NEUTROPHILS % (AUTO) 75.3 % (38.5-71.5); PLATELET COUNT (AUTO) 204 K/UL (150-450); RED BLOOD CELL COUNT(AUTO) 5.71 MIL/UL (4.7-6.1); WHITE BLOOD COUNT (AUTO) 8.9 K/UL (4.0-11.2)
[2017-05-25 09:59] VITALS: BP 103/77
--- NOTE | 2017-05-25 10:24 | NUR ---
no iv access at this time. both previous ivs not patent. attepmted 2 insertions unsuccessfully. will ask another rn to insert
[2017-05-25] MEDS: CEFTRIAXONE 1 G in IV DEXTROSE 5% 50 ML IV SCH (11:16)
[2017-05-25 11:45] VITALS: BP 112/70
[2017-05-25] MEDS: INSULIN REGULAR, HUMAN 300 UNIT/3 ML VIAL SQ PRN (12:03)
[2017-05-25 16:17] VITALS: BP 135/95
[2017-05-25] MEDS ORDERED: ATOR40TA PO (17:28)
[2017-05-25] MEDS ORDERED: EZET10TA13 PO (17:28)
[2017-05-25] MEDS ORDERED: NICO1PAT28 TD (17:28)
[2017-05-25] MEDS ORDERED: HYDR50TA68 PO (17:28)
[2017-05-25] MEDS ORDERED: CARV25TA2 PO (17:28)
[2017-05-25 17:42] VITALS: BP 149/95
[2017-05-25] MEDS ORDERED: CARVEDILOL 25 MG TABLET PO SCH (18:00)
--- NOTE | 2017-05-25 18:35 | NUR ---
PT V/S/ STABLE. PT TEACHING PROVIDED TO PT AND HIS REGARDING DISCHARGE INSTRUCTIONS . BOTH IV ACCESSES REMOVED. BELONGINGS ACCOUNTED FOR. Addendum: 05/25/17 at 1858 by LIBAN SOSA RN NO REDNESS OF IRRITATION NOTED FROM IV SITES. PT ASSISTED BY WHEELCHAIR DOWNSTAIRS LEFT IN PRIVATE CAR WITH . FOLLOW UP APPOINTMENT MADE BY DAUGHTER AND CONFIRMED.
[2017-05-26 08:09] LABS: A/G RATIO 1.2 (0.7-1.7); ALBUMIN 2.9 g/dL (2.9-4.4); ALPHA-1-GLOBULIN 0.2 g/dL (0.0-0.4); ALPHA-2-GLOBULIN 0.7 g/dL (0.4-1.0); GAMMA GLOBULIN 0.6 g/dL (0.4-1.8); GLOBULIN, TOTAL 2.5 g/dL (2.2-3.9); M-SPIKE Not Observed g/dL (Not Observed)
== END 2017-05-25 18:45 | disposition home or self-care (01) | DRG 133 ==
LOC: ER 09:50 → CCU 14:07 → TELE 05-24 15:59 → MED 05-25 15:40
PROVIDERS: ADMIT Nurse Practitioner Acute Care; ATTEND Nurse Practitioner Acute Care
PROC: 5A09357 Assistance with Respiratory Ventilation, Less than 24 Consecutive Hours, Continuous Positive Airway Pressure (ICD-10-PCS; principal; 2017-05-22)
DX: J96.01 Acute respiratory failure with hypoxia (principal); I21.4 Non-ST elevation (NSTEMI) myocardial infarction; N17.0 Acute kidney failure with tubular necrosis; E43 Unspecified severe protein-calorie malnutrition; I50.33 Acute on chronic diastolic (congestive) heart failure; I13.0 Hypertensive heart and chronic kidney disease with heart failure and stage 1 through stage 4 chronic kidney disease, or unspecified chronic kidney disease; L03.116 Cellulitis of left lower limb; Z68.41 Body mass index [BMI] 40.0-44.9, adult; J18.9 Pneumonia, unspecified organism; E11.22 Type 2 diabetes mellitus with diabetic chronic kidney disease; F17.210 Nicotine dependence, cigarettes, uncomplicated; N18.9 Chronic kidney disease, unspecified; Z79.84 Long term (current) use of oral hypoglycemic drugs; N20.0 Calculus of kidney; N39.0 Urinary tract infection, site not specified; B96.20 Unspecified Escherichia coli [E. coli] as the cause of diseases classified elsewhere; R80.9 Proteinuria, unspecified; Z16.12 Extended spectrum beta lactamase (ESBL) resistance; E66.01 Morbid (severe) obesity due to excess calories; Z87.81 Personal history of (healed) traumatic fracture; M54.40 Lumbago with sciatica, unspecified side; E78.5 Hyperlipidemia, unspecified; Z91.19 Patient's noncompliance with other medical treatment and regimen; N40.0 Benign prostatic hyperplasia without lower urinary tract symptoms; N28.1 Cyst of kidney, acquired; Z83.3 Family history of diabetes mellitus; Z82.49 Family history of ischemic heart disease and other diseases of the circulatory system; Z79.899 Other long term (current) drug therapy; Z98.49 Cataract extraction status, unspecified eye; J44.1 Chronic obstructive pulmonary disease with (acute) exacerbation; J44.0 Chronic obstructive pulmonary disease with (acute) lower respiratory infection; I25.2 Old myocardial infarction; G89.29 Other chronic pain; G47.30 Sleep apnea, unspecified
CPT/HCPCS: 36415; 36600; 70030-TC; 71010; 76770; 83605; 83735; 83970; 84100; 84153; 84155; 84156; 84165; 84300; 84443; 84481; 85025; 85730; 87040; 87077; 87086; 93005; 94640; 94664; A4663; C9113; J0360; J0456; J0696; J1650; J1815; J1940; J2270; J2930; J3475; J3490; J3590; J7050; J7060; J7614

== ENCOUNTER 2018-02-23 15:44 | Emergency (ER) | payer BC ==
[~2018-02-23] VITALS: Ht 165.1 cm; Wt 108.9 kg
[~2018-02-23 15:44] MED LIST changes: +ATOR40TA PO; -BENA20TA2 PO; +CARV25TA2 PO; +CHOL10002 PO; -CHOL500050 PO; -DOCU100C36 PO; +EZET10TA13 PO; +FURO-151 PO; -FURO20TA4 PO; +GABA-532 PO; -HYDR-4077 PO; +HYDR50TA68 PO; -LABE100T PO; -LORA10TA7 PO; +MELO-107 PO; +NICO1PAT28 TD; -SULF1TAB48 PO
[2018-02-23] MEDS ORDERED: ALBUTEROL SULFATE 2.5 MG/3 ML NEBU NEB ONE (16:00)
[2018-02-23] MEDS ORDERED: IPRATROPIUM BROMIDE 0.5 MG/2.5 ML NEBU NEB ONE (16:00)
[2018-02-23] MEDS ORDERED: ALBUTEROL SULFATE 2.5 MG/3 ML NEBU ONE (16:09)
[2018-02-23] MEDS ORDERED: IPRATROPIUM BROMIDE 0.5 MG/2.5 ML NEBU ONE (16:10)
[2018-02-23] MEDS ORDERED: BUDE10.2 IH (16:12)
[2018-02-23] MEDS ORDERED: LIRA0.6P2 SQ (16:12)
[2018-02-23] MEDS ORDERED: BENA40TA2 PO (16:12)
[2018-02-23] MEDS ORDERED: LORA0.5T PO (16:12)
[2018-02-23 16:45] LABS: BASOPHILS # (AUTO) 0.1 K/uL (0.0-8.0); BASOPHILS % (AUTO) 0.4 % (0.0-2.0); EOSINOPHILS % (AUTO) 0.1 % (0.0-7.0); HEMATOCRIT 39.3 % (36.7-47.1); LYMPHOCYTES # (AUTO) 1.2 K/uL (20.0-40.0); LYMPHOCYTES % (AUTO) 8.7 % (20.5-51.5); MEAN CORPUSCULAR HEMOGLOBIN 25.9 uug (23.8-33.4); MEAN CORPUSCULAR HGB CONC 33 g/dL (32.5-36.3); MONOCYTES # (AUTO) 1.1 K/uL (2.0-10.0); MONOCYTES % (AUTO) 7.6 % (0.0-11.0); NEUTROPHILS # (AUTO) 11.9 K/uL (1.8-8.9); NEUTROPHILS % (AUTO) 83.2 % (38.5-71.5); PLATELET COUNT (AUTO) 165 K/uL (152-348); RED BLOOD CELL COUNT(AUTO) 5.04 MIL/uL (4.06-5.63); WHITE BLOOD COUNT (AUTO) 14.3 K/uL (3.6-10.2)
[2018-02-23 16:59] LABS: POTASSIUM 3.5 mmol/L (3.5-5.1)
[2018-02-23 17:09] LABS: BILIRUBIN,DIRECT 0.1 mg/dL (0.0-0.2); BILIRUBIN,TOTAL 0.7 mg/dL (0.2-1.0); TOTAL PROTEIN, SERUM 7.3 g/dL (6.4-8.2)
[2018-02-23] MEDS ORDERED: CEFTRIAXONE 1 G in IV DEXTROSE 5% 50 ML IV ONE (17:15)
[2018-02-23] MEDS ORDERED: AZITHROMYCIN IV 500 MG in IV DEXTROSE 5% 250 ML IV ONE (17:15)
[2018-02-23] MEDS ORDERED: CEFTRIAXONE 1 G VIAL ONE (17:22)
[2018-02-23] MEDS ORDERED: AZITHROMYCIN 500 MG VIAL IV ONE (17:22)
[2018-02-23 17:31] LABS: *BILIRUBIN,URIN NEGATIVE (NEGATIVE); *BLOOD, URINE Trace-lysed (NEGATIVE); *CLARITY,URINE SLIGHTLY CLOUDY (CLEAR); *KETONES,URINE NEGATIVE (NEGATIVE); *UROBILINOGEN,URINE 0.2 E.U./dl (NORMAL); LEUKOCYTE ESTERASE ,URINE 1+ (NEGATIVE); NITRITE, URINE POSITIVE (NEGATIVE); UGLUCOSE NEGATIVE (NEGATIVE)
[2018-02-23 17:40] LABS: *COLOR,URINE YELLOW (YELLOW); *PROTEIN,URINE 3+ (NEGATIVE)
[2018-02-23 17:41] LABS: BACTERIA,URINE MANY /HPF (NONE SEEN); WBC,URINE 80-100 /HPF (0-3)
[2018-02-23] MEDS ORDERED: PIPERACILLIN SODIUM/TAZOBACTAM 3.375 G in IV DEXTROSE 5% 50 ML IV ONE (19:00)
--- NOTE | 2018-02-23 19:12 | NUR ---
PT TO BE TRANSFERED TO [facility] PER PT INSURANCE, ACCEPTING DR CHRIS ALLEN.
--- NOTE | 2018-02-23 19:18 | NUR ---
HANDS OFF REPORT GIVEN TO CARLEY JOHNSON. PT STABLE THE WHOLE ER STAY, NO SIGN OF DISTRESS.
[2018-02-23] MEDS ORDERED: PIPERACILLIN/TAZOBACTAM/D5W 50 ML IV ONE (19:23)
--- NOTE | 2018-02-23 19:45 | NUR ---
Pt states still has pain in the testicles, but not in the stomach. Patient pain 7/10 but refuses pain meds at this time, reports pain is manageable.
--- NOTE | 2018-02-23 21:51 | NUR ---
Pt sleeping in bed, no acute signs of distress.
--- NOTE | 2018-02-23 23:37 | NUR ---
Spoke with Aleshia, patient going to Bed#[id number], or to give report.
--- NOTE | 2018-02-23 23:43 | NUR ---
Report given to Nusrat White RN [facility].
--- NOTE | 2018-02-24 00:05 | NUR ---
Spoke with Franck with [employer], given Trip#[id number], ETA [id number].
--- NOTE | 2018-02-24 01:05 | NUR ---
Pt in bed sleeping, no acute signs of distress.
--- NOTE | 2018-02-24 01:38 | NUR ---
[facility] arrived to ER to transport patient from [facility] to [facility]. Report and documentation given to EMT.
--- NOTE | 2018-02-24 01:50 | NUR ---
Patient out of ER via [facility], to be transported to [facility].
--- NOTE | 2018-02-27 15:50 | NUR ---
Pt Urine Cx Results came back positive for E.Coli Resistant to [place]. [facility] was contacted. pt was still in the hospital. Result was given to the nurse Bonita and Fax to [phone].
[2018-02-28 08:06] LABS: *GC NAA Negative (Negative); *TRIC.VAG. NAA Negative (Negative)
== END 2018-02-24 01:52 | disposition short-term general hospital (02) ==
LOC: ER 15:46
DX: J44.1 Chronic obstructive pulmonary disease with (acute) exacerbation (principal); J18.9 Pneumonia, unspecified organism; K29.80 Duodenitis without bleeding; N45.1 Epididymitis; I11.0 Hypertensive heart disease with heart failure; I50.9 Heart failure, unspecified; E11.9 Type 2 diabetes mellitus without complications; N17.9 Acute kidney failure, unspecified; I25.2 Old myocardial infarction; F17.210 Nicotine dependence, cigarettes, uncomplicated; Z90.49 Acquired absence of other specified parts of digestive tract; Z79.82 Long term (current) use of aspirin; Z79.84 Long term (current) use of oral hypoglycemic drugs; Z79.899 Other long term (current) drug therapy
CPT/HCPCS: 36415; 71045; 74176; 76870; 80048; 80076; 81001; 83605; 83690; 83880; 84484; 85025; 85730; 87040 ×2; 87077; 87086; 87186; 87491; 93005; 94640; 96365 ×2; 96368; 99285; A4663; J0456; J0696; J2543; J3490; J3590; J7050; 70030-TC

== ENCOUNTER 2019-10-22 14:14 | Emergency (ER) | payer BC ==
[~2019-10-22] VITALS: Ht 167.6 cm; Wt 102.1 kg
[~2019-10-22 14:14] MED LIST changes: -ALBU18HF2 IH; +BENA40TA8 PO; +BUDE10.2 IH; -CARI350T27 PO; -EZET10TA13 PO; +LIRA0.6P2 SQ; +LORA0.5T PO; -NICO1PAT28 TD
[2019-10-22] MEDS ORDERED: TETRACAINE HCL 0.5% OPHT DROP 2 ML BOTTLE ONE (14:40)
[2019-10-22] MEDS ORDERED: FLUORESCEIN SODIUM 1 MG STRIP ONE (14:42)
--- NOTE | 2019-10-22 14:44 | NUR ---
Dr Nash at the bedside for MSE.
[2019-10-22] MEDS ORDERED: FLUORESCEIN SODIUM 1 MG STRIP OP ONE (14:45)
[2019-10-22] MEDS ORDERED: TETRACAINE HCL 0.5% OPHT DROP 2 ML BOTTLE OP ONE (14:45)
--- NOTE | 2019-10-22 15:24 | NUR ---
Ronnie loza in [facility] - 10/22/19 at 1527 by [id number] Patient discharged to home in stable conditon. Written and verbal after care instructions given. Patient verbalizes understanding of instructions.
[2019-10-22 15:25] VITALS: BP 146/86
--- NOTE | 2019-10-22 15:26 | NUR ---
Patient discharged to home in stable condition. Written and verbal aftercare instructions given. Patient and daughter verbalized understanding of instructions.
== END 2019-10-22 15:28 | disposition home or self-care (01) ==
LOC: ER 14:14
DX: S05.02XA Injury of conjunctiva and corneal abrasion without foreign body, left eye, initial encounter (principal); I11.0 Hypertensive heart disease with heart failure; I50.9 Heart failure, unspecified; I25.2 Old myocardial infarction; E11.9 Type 2 diabetes mellitus without complications; F17.200 Nicotine dependence, unspecified, uncomplicated; Z79.82 Long term (current) use of aspirin; Z79.899 Other long term (current) drug therapy; X58.XXXA Exposure to other specified factors, initial encounter; Y93.89 Activity, other specified; Y92.89 Other specified places as the place of occurrence of the external cause; Y99.8 Other external cause status
CPT/HCPCS: A4663